=== PATIENT | female | born 1980 | race Caucasian/White ===

== ENCOUNTER 2024-11-29 05:54 | Day surgery (SDC) | payer OTHER ==
[~2024-11-29] VITALS: Ht 157.5 cm; Wt 140.9 kg
[~2024-11-29 05:54] MED LIST: FLUT16SP NASAL; INSU100V45 SQ; LOSA-382 PO; OMEP20CA12 PO; TEZE210P SQ; TIRZ2.5P3 SQ
[2024-11-29] MEDS ORDERED: SODIUM CHLORIDE 0.9% 1,000 ML ONE (06:20)
[2024-11-29] MEDS: SODIUM CHLORIDE 0.9% 1,000 ML IV ONE (06:38)
[2024-11-29] MEDS ORDERED: OXYGEN THERAPY IH SCH (08:45)
== END 2024-11-29 09:55 | disposition home or self-care (01) ==
LOC: SDS 05:54
PROVIDERS: ATTEND Specialist
DX: Z12.11 Encounter for screening for malignant neoplasm of colon (principal); E11.9 Type 2 diabetes mellitus without complications; G47.30 Sleep apnea, unspecified; J45.909 Unspecified asthma, uncomplicated; Z82.49 Family history of ischemic heart disease and other diseases of the circulatory system; E66.01 Morbid (severe) obesity due to excess calories; Z68.44 Body mass index [BMI] 60.0-69.9, adult; M19.90 Unspecified osteoarthritis, unspecified site; Z88.6 Allergy status to analgesic agent; Z88.2 Allergy status to sulfonamides; Z88.0 Allergy status to penicillin; Z87.891 Personal history of nicotine dependence; Z93.0 Tracheostomy status; Z98.890 Other specified postprocedural states
CPT/HCPCS: 45378; 36415; 84703; J7030